=== PATIENT | female | born 1955 | race Caucasian/White ===

== ENCOUNTER 2016-09-14 09:25 | Day surgery (SDC) | payer OTHER ==
[~2016-09-14] VITALS: Ht 167.6 cm; Wt 156.9 kg
[2016-09-14] VITALS (7 sets, daily range): BP systolic 133–146; BP diastolic 54–79; PULSE 56–73; RESP 12–18; O2SAT 94–98
[~2016-09-14 09:25] MED LIST: ACET-2766 PO; ADV250INH IH; ALBU8.5H2 INHALATION; CHOL100045 PO; COLC0.6T55 PO; DOXE6TAB3 PO; DULO30CA50 PO; EPIN0.3P2 IJ; ESOM40CA41 PO; FLUT9.9S NS; HYDR25TA4 PO; HYDR2TAB28 PO; KEN25CR TP; LEVO25TA5 PO; LORA10CA PO; MESA1.2T2 PO; NYST50002 PO; POTA20TA16 PO; PSEU240T6 PO
[2016-09-14] MEDS ORDERED: fentaNYL-PF 50 mCg/mL 2 mL Inj ONE (09:26)
[2016-09-14] MEDS ORDERED: Propofol 10,000 mCg/mL 20 mL Inj ONE (09:26)
[2016-09-14] MEDS ORDERED: MetoCLOpramide 5 mg/mL 2 mL Inj ONE (09:26)
[2016-09-14] MEDS ORDERED: CEFAZOLIN IV ONE (09:35)
[2016-09-14] MEDS ORDERED: DEXTROSE 5% IV ONE (09:35)
[2016-09-14] MEDS ORDERED: PHA MIX IV ONE (09:35)
[2016-09-14] MEDS: Lactated Ringer's 1,000 ML IV SCH ×2 (09:38→11:08)
[2016-09-14] MEDS ORDERED: CeFAZolin Inj 3 Gm/ D5W 50 mL Bag IV ONE (10:02)
[2016-09-14] MEDS ORDERED: CETI10CA PO (10:05)
[2016-09-14] MEDS ORDERED: Lidocaine 1%/Epi 1:100,000 30 mL MDV INFILTRATE ONE (11:24)
[2016-09-14] MEDS ORDERED: Lidocaine 1%-Epi 1:100,000 20 mL Inj INFILTRATE ONE (11:29)
[2016-09-14] MEDS ORDERED: Lactated Ringer's 1,000 ML IV SCH (11:32)
[2016-09-14] MEDS ORDERED: Lactated Ringer's 500 ML IV PRN (11:32)
[2016-09-14] MEDS ORDERED: Labetalol 5 mg/mL 4 mL Inj IV PRN (11:35)
[2016-09-14] MEDS ORDERED: MetoCLOpramide 5 mg/mL 2 mL Inj IVPUSH PRN (11:35)
[2016-09-14] MEDS ORDERED: Dexamethasone 4 mg/mL Inj IVPUSH PRN (11:35)
[2016-09-14] MEDS ORDERED: EPHEDrine Sulfate 50 mg/mL Inj IVPUSH PRN (11:35)
[2016-09-14] MEDS ORDERED: Atropine 0.4 mg/mL Inj IVPUSH PRN (11:35)
[2016-09-14] MEDS ORDERED: hydrALAZINE 20 mg/mL Inj IVPUSH PRN (11:35)
[2016-09-14] MEDS ORDERED: Ondansetron 2 mg/mL 2 mL Inj IVPUSH PRN (11:35)
[2016-09-14] MEDS ORDERED: fentaNYL-PF 50 mCg/mL 2 mL Inj IVPUSH PRN (11:35)
[2016-09-14] MEDS ORDERED: Phenylephrine 10,000 mCg/mL Inj IVPUSH PRN (11:35)
--- NOTE | 2016-09-14 11:49 | PCM.HPANE ---
Patient Data Surgeon Admitting Provider: Attending Provider:Sia Strong DPM Primary Care Physician:Margaret Pollock MD Other Provider:Rebecca Catherine Anesthesia Reason for Visit Right Foot Painful Hardware Ht/WT & BMI Height (Feet): 5 Height (Inches): 6 Weight (Kilograms): 156.03 Body Mass Index 55.00 Allergies Coded Allergies: latex (Verified Allergy, Severe, RASH, 05/04/16) gabapentin (Verified Allergy, Unknown, UNKNOWN, 05/04/16) naproxen (Verified Allergy, Unknown, UNKNOWN, 05/04/16) pregabalin (Verified Allergy, Unknown, UNKNOWN, 05/04/16) clarithromycin (Verified Adverse Reaction, Severe, NAUSEA, METALLIC TASTE , 05/04/16) erythromycin base (Verified Adverse Reaction, Severe, NAUSEA,METALLIC TASTE, 05/04/16) Past Anesthesia History Anesthesia History: Denies:: Anesthesia Reactions, Malignant Hyperthermia Diabetes History Hx Diabetes?: No MRSA MRSA: No Medications Hypertension Medication: Yes Home Meds Incl Beta Naeem: No Reported Medications Cetirizine HCl (Zyrtec)10 Mg Zpkibvo22 Mg PO HS #30 CAPSULE Ref 0 09/14/16 Hydromorphone 2 Mg Tablet2 Mg PO Q4H PRN Pain Ref 0 05/03/16 Epinephrine (Epipen 2-Avel)0.3 Mg/0.3 Ml Auto.injct0.3 Mg IJ PRN 05/03/16 Nystatin 500,000 Unit Tablet1,000,000 Unit PO BID 05/03/16 Cholecalciferol (Vitamin D3) (Vitamin D)1,000 Unit Capsule1,000 Unit PO HS #1 BOTTLE Ref 0 05/03/16 Pseudoephedrine HCl (Sudafed 24-Hour)240 Mg Tab.er.42o285 Mg PO DAILY PRN PRN 05/03/16 Acetaminophen (Tylenol Arthritis)650 Mg Tablet.er1,300 Mg PO BID 05/03/16 Albuterol HFA (Proair HFA)8.5 Gm Hfa.aer.ad2 Puffs INHALATION Q4H PRN PRN #1 INHALER 05/03/16 Levothyroxine 25 Mcg [id number] Mcg PO DAILY Ref 0 05/03/16 Potassium Chloride 20 Meq Tab.er.prt20 Meq PO DAILY 30 Days Ref 0 TAKE WITH FOOD 05/03/16 Hydrochlorothiazide 25 Mg Mcsylk58 Mg PO DAILY 30 Days Ref 0 05/03/16 Duloxetine 30 Mg Capsule.dr30 Mg PO HS Ref 0 05/03/16 Esomeprazole Magnesium (Nexium)40 Mg Capsule.dr40 Mg PO DAILY Ref 0 05/03/16 Doxepin HCl (Silenor)6 Mg Tablet6 Mg PO HS 05/03/16 Fluticasone/Salmeterol (Advair 250-50 Diskus)60 Puff/Inh Disk1 Puff IH BID #1 DISK Ref 0 05/03/16 Discontinued Reported Medications Mesalamine (Lialda)1.2 Gm Tablet.dr2.4 Gm PO DAILY COLITIS 05/04/16 Triamcinolone Acet (Triamcinolone Acetonide Cream)1 Applic/0.25 Gm Cr1 Applic TP BID PRN PRN #60 GM Ref 0 05/03/16 Loratadine (Claritin)10 Mg Jyplqag44 Mg PO DAILY ALLERGIES Ref 0 PRN ALLERGIES 05/03/16 Fluticasone Propionate (Flonase Allergy Relief)50 Mcg/Actuation [place].susp9.9 Ml NS DAILY PRN PRN 05/03/16 Colchicine 0.6 Mg Tablet0.6 Mg PO DIRECTED PRN GOUT 05/03/16 History History of ENT Problems?: Yes HEENT History: Positive for:: Sinus Problem (s/p sinus surgery) Hx of Heart Problems?: Yes Cardiovascular History: Positive for:: Heart Murmur (REPORTED BY PT--NONE NOTED ON EXAM) Hypertension Denies:: Chest Pain Valvular Heart Disease Hx of Respiratory Problem?: Yes Respiratory History: Positive for:: Asthma Use of C-PAP Machine (uses mouth guard) Hx Neurologic Problems?: No Neurological History: Denies:: CVA Multiple Sclerosis Parkinson's Disease Seizures Hx of GI Problems?: Yes Gastrointestinal History: Positive for:: Gastroesphageal Reflux Gastrointestinal Bleeding (past hx of) Rectal Bleeding (hx of colitis) Hx of Problems?: No Female Hx: Denies:: Currently Skin History: Denies:: History Skin Disorders? Pressure Ulcers Hx Musculoskeletal Problems?: Yes Musculoskeletal History: Positive for:: Degenerative Joint Joint Replacement (bilat TKA) Musculoskeletal Trauma (right foot painful hardware current admission problem) Denies:: Back Injury (hx low back pain, AVERY tx) Hx of Psycho/Social Problems?: Yes Psycho Social History: Positive for:: Hx Depression Hx Surgeries?: Yes (SINUS (POLYPS),FACIAL BONES,KNEE SCOPE,BILAT TKA'S,D&C, ENDOMET. BX,TALA,LT) Hx Any Other Health Problems?: Yes Other History: Positive for:: Hospitalization (CHEST PAIN 2010) Thyroid Disease Denies:: Cancer Endocrine Disease History Blood Transfusions: Denies:: Blood Transfusions Hx Diabetes: No Hx Alcohol Use: NoHx Substance Use: No Smoking Status: Never Smoker Have You Smoked inLast 12 mo: No Stop/Bang P-Blood Pressure: treated: Yes B- Body Mass Index > 35 kg/m2: Yes A- Age over 50: Yes N- Neck Large Circumference: Yes G- Gender Male: No Risk Assessment Category Category 1A: Patient has history of documented sleep apnea, and HAS NOT received any narcotic, sedative or anesthesia administration during this stay. Category 1B: Patient has history of documented sleep apnea, and HAS received any narcotic , sedative or anesthesia administration during this stay Category 2: Patient has SUSPECTED Obstructive Sleep Apnea, and HAS received any narcotic , sedative or anesthesia administration during this stay. Category 3: Patient has SUSPECTED Obstructive Sleep Apnea and HAS NOT received narcotic, sedative or anesthesia administration during this stay. Category 4: Outpatient in Procedural Areas with known sleep apnea or who screen positive for High Risk via the STOP/BANG questionnaire. Exam Exam General Appearance: Alert, Oriented X3, Cooperative, No Acute Distress HEENT/AIRWAY: MP 2, Neck Movement (FROM), Mouth Opening (3 FBMO) Lungs: Clear to Auscultation, Diminished Heart: Exam Unremarkable, Regular Rate/Rhythm, No Murmurs/Rubs/Gallops Plan Impression Patient chart reviewed, patient interviewed and anesthestic plan with risks, benefits, and alternatives discussed, and informed consent obtained. NPO Status: 05/03 ASA Physical Status: ASA3 Severe Disease (BMI 55) Anesthetic Plan: GA (If SAB and MAC unsuccessful will perform GA), MAC (will perform MAC with ankle block if SAB unsuccessful), SAB (will attempt SAB first, if unsuccessful or technically difficult will abandon and attempt MAC with ankle block) Bene/Risks/Altern/Consents: Yes HP Complete Prior to Induction: Yes Addy Camacho MD Sep 14, 2016 08:33
--- NOTE | 2016-09-14 12:07 | PCM.PODPO ---
Podiatry Operative Report Date of Service: Sep 14, 2016 Date of Service Sep 14, 2016 Pre Operative Diagnosis Pain due to orthopedic implant, right heel Post Operative Diagnosis Pain due to orthopedic implant, right heel Procedure Removal of screw, right heel, subtalar joint Surgeon Surgeon: Sia Strong DPM Assistants: None Indication for Procedure Pain due to hardware prominence after healing subtalar joint fusion. Findings screw removed in its entirety without complication Details of Procedure Patient was identified in the preoperative holding area, brought back to the operating room and positioned in a supine position with left tilt. IV sedation was administered by Dr. Camacho, the timeout protocol completed prior to each step of the procedure. The right foot was anesthetized locally and prepped and draped in the usual aseptic manner. A linear incision was made through the existing scar tissue to reach the screw head. The soft tissue was retracted, the screw removed in its entirety without any complications. The wound was irrigated with LR solution, then closed full thickness through skin and subcutaneous tissue with 3-0 Prolene suture. Dressing consisted of Michi's silk, gauze, tape, and a well padded posterior splint. The patient tolerated the procedure and anesthesia well and was transported to the recovery room with vital signs stable and vascular status to the right foot intact. Grafts, Implants: None Complications There were no periprocedural complications identified. Condition Stable Anesthetic Administered: MAC Drains: None Catheters: None Output, Estimated Blood Loss: 5 (ml) Blood Admin during surgery: No Surgical Cast or Splint: Well-padded Short Leg Splint Surgical Specimen Removed: No Specimen sent to Pathology: No Post Operative Plan WB to tolerance in postop shoe for the next week. Suture removal in one week. Dressing to remain clean and intact. Sia Strong DPM Sep 14, 2016 11:16
[2016-09-14] MEDS ORDERED: oxyCODONE-Acetamin 5-325 mg Tablet PO PRN (12:10)
--- NOTE | 2016-09-14 12:43 | PCM.ANEP1 ---
Post Anesthesia Phase 1 PACU Phase 1 Assessment Date of Service: Sep 14, 2016 Vital Signs Vital Signs Date Time Temp Pulse Resp B/P Pulse Ox O2 Delivery O2 Flow Rate FiO2 09/14/16 12:37 56 16 143/72 95 Room Air 09/14/16 12:26 60 16 142/73 96 Room Air 09/14/16 12:20 36.5 62 12 142/76 96 Room Air 09/14/16 12:15 62 16 140/69 98 Room Air 09/14/16 12:10 68 14 146/79 94 Room Air 09/14/16 12:05 36.6 67 15 145/77 95 Room Air 09/14/16 10:29 36.0 73 18 133/54 96 Room Air 09/14/16 10:29 CPAP/BIPAP Anesthetic Administered: GA, MAC Level of Alertness: Awake, talking MACEDO's with Equal Strength: Yes Pain: No Nausea or Vomiting: No Oxygen Delivery: Room Air Lungs: Clear to Auscultation, Diminished Dermatome Level: Full Sensation Addy Camacho MD Sep 14, 2016 12:43
--- NOTE | 2016-09-14 12:44 | PCM.ANEP2 ---
Post Anesthesia Evaluation ASA/CMS Post Anesthesia VS in Patient's Normal Range?: Yes Resp Stable; Airway Patent?: Yes CV Function & Hydration Stable: Yes Mental Status Recovered?: Yes Pain control Satisfactory?: Yes N/V Control Satisfactory?: Yes Addy Camacho MD Sep 14, 2016 12:44
== END 2016-09-14 23:59 | disposition home or self-care (01) ==
LOC: SAS 09:25
PROVIDERS: ATTEND Podiatrist
DX: T85.848A Pain due to other internal prosthetic devices, implants and grafts, initial encounter (principal); I10 Essential (primary) hypertension; J45.909 Unspecified asthma, uncomplicated; K21.9 Gastro-esophageal reflux disease without esophagitis; F32.9 Major depressive disorder, single episode, unspecified; E07.9 Disorder of thyroid, unspecified; X58.XXXA Exposure to other specified factors, initial encounter; Y92.9 Unspecified place or not applicable; Z79.899 Other long term (current) drug therapy